=== PATIENT | female | born 1940 | race African-American/Black ===

== ENCOUNTER 2018-05-12 09:45 | Day surgery (SDC) | payer SELFPAY ==
[~2018-05-12] VITALS: Ht 157.5 cm; Wt 69.6 kg
[2018-05-12 10:51] VITALS: BP 145/76; PULSE 93; TEMP 98.7
[2018-05-12] MEDS ORDERED: TENORMIN 5050 MG/TAB PO (11:04)
[2018-05-12] MEDS ORDERED: ZOCOR 80MG80 MG PO (11:04)
[2018-05-12] MEDS ORDERED: ASPIRIN E.C. 8181 MG PO (11:05)
[2018-05-12] MEDS ORDERED: DETROL LA 2 MG2 MG PO (11:06)
[2018-05-12] MEDS ORDERED: LYRICA 75MG CAP75 MG PO (11:06)
[2018-05-12] MEDS ORDERED: CALCIUM 600/VIT1 CAP PO (11:07)
[2018-05-12] MEDS ORDERED: VITAMIN B COMPL1 T16 PO (11:07)
[2018-05-12] MEDS ORDERED: OMEGA-31 SGL PO (11:07)
[2018-05-12 12:45] VITALS: BP 110/60; PULSE 69; TEMP 98
[2018-05-12 13:00] VITALS: BP 112/64; PULSE 60
[2018-05-12 13:15] VITALS: BP 115/69; PULSE 65
[2018-05-12 13:30] VITALS: BP 129/80; PULSE 62
[2018-05-12 14:08] VITALS: BP 112/63; PULSE 71
== END 2018-05-12 13:50 | disposition home or self-care (01) ==
LOC: SDCO 09:45
DX: Z12.11 Encounter for screening for malignant neoplasm of colon (principal); K64.1 Second degree hemorrhoids; K62.89 Other specified diseases of anus and rectum; E78.00 Pure hypercholesterolemia, unspecified; R03.0 Elevated blood-pressure reading, without diagnosis of hypertension; Z86.010 Personal history of colon polyps
CPT/HCPCS: OP; J2250; J3010; J7030

== ENCOUNTER → 2018-05-18 | Outpatient (CLI) | payer OTHER ==
[~2018-05-18] MED LIST: ASPIRIN E.C. 8181 MG PO; CALCIUM 600/VIT1 CAP PO; DETROL LA 2 MG2 MG PO; LYRICA 75MG CAP75 MG PO; OMEGA-31 SGL PO; TENORMIN 5050 MG/TAB PO; VITAMIN B COMPL1 T16 PO; ZOCOR 80MG80 MG PO
[2018-05-18 11:47] LABS: HEMATOCRIT 37.7 % (37.0-47.0); HEMOGLOBIN 13.2 g/dl (12.5-16.0); MEAN CELL VOLUME 85 fl (80.0-100.0); MEAN CORPUSCULAR HEMOGLOBIN 30 pg (27.0-31.0); MEAN CORPUSCULAR HGB CONC 35 g/dl (33.0-37.0); MEAN PLATELET VOLUME 9.3 fl (7.4-10.4); PLATELET COUNT 215 K/mm3 (130-400); RED BLOOD COUNT 4.44 M/mm3 (4.10-5.30); REDCELL DISTRIBUTION WIDTH-CV 13.3 % (11.5-14.5)
[2018-05-18 11:56] LABS: ALBUMIN 4.4 gm/dL (3.5-5.0); BILIRUBIN,TOTAL 1.2 mg/dL (0.0-1.0); CALCIUM 9.7 mg/dL (8.4-10.2); CHOLESTEROL RISK RATIO 2.6; CREATININE, serum 0.67 mg/dL (0.52-1.25); POTASSIUM 3.9 mmol/L (3.4-5.0); TOTAL PROTEIN 7.7 gm/dL (6.4-8.2)
[2018-05-18 12:28] LABS: THYROID STIMULATING HORMONE 1.04 uIU/mL (0.465-4.680)
== END ==
LOC: COL.LAB 11:11
PROVIDERS: Internal Medicine
DX: I10 Essential (primary) hypertension (principal); E78.5 Hyperlipidemia, unspecified; K62.9 Disease of anus and rectum, unspecified; R06.00 Dyspnea, unspecified

== ENCOUNTER → 2018-05-26 | Outpatient (CLI) | payer SELFPAY | LOC: COL.CARD 11:29 | DX: I11.0 Hypertensive heart disease with heart failure (principal); I50.30 Unspecified diastolic (congestive) heart failure ==

== ENCOUNTER → 2018-10-20 | Outpatient (CLI) | payer OTHER ==
[2018-10-21 04:20] LABS: RHEUMATOID FACTOR-SCREEN <15 IU/mL (0-29)
[2018-10-21 18:16] LABS: ANA SCREEN with REFLEX Negative (Negative)
== END ==
LOC: COL.RAD 11:50
PROVIDERS: Internal Medicine
DX: M17.11 Unilateral primary osteoarthritis, right knee (principal); M19.032 Primary osteoarthritis, left wrist; M19.031 Primary osteoarthritis, right wrist; M79.89 Other specified soft tissue disorders

== ENCOUNTER → 2018-12-22 | Outpatient (CLI) | payer SELFPAY | LOC: COL.RAD 12:33 | DX: M47.816 Spondylosis without myelopathy or radiculopathy, lumbar region (principal) ==